=== PATIENT | female | born 1970 | race Caucasian/White ===

== ENCOUNTER → 2016-11-29 | Outpatient (CLI) | payer BC | LOC: MAMO 14:03 | DX: Z12.31 Encounter for screening mammogram for malignant neoplasm of breast (principal) | CPT/HCPCS: G0202 ==

== ENCOUNTER → 2020-09-13 | Outpatient (CLI) | payer BC ==
[~2020-09-13] MED LIST: EUTHYROX75 MCG PO; HYDROCODON-ACE1 EAC4 PO; MOBIC15 MG PO; PAXIL20 MG PO; PEPCID40 MG PO; ZOFRAN ODT 4 MG4 MG GT
[2020-09-13 15:20] LABS: HEMOGLOBIN 14.7 gm/dl (12.3-15.3); RED BLOOD COUNT 4.57 M/UL (4.00-5.10)
[2020-09-13 16:57] LABS: BUN/CREATININE RATIO 14 (0-10)
== END ==
LOC: LAB 14:26
PROVIDERS: Nurse Practitioner Family
DX: Z00.00 Encounter for general adult medical examination without abnormal findings (principal)
CPT/HCPCS: 36415; 80053; 80061; 82607; 83036; 83735; 84443; 85025

== ENCOUNTER → 2020-09-18 | Outpatient (CLI) | payer BC ==
[2020-09-18 15:28] LABS: HEMOGLOBIN 14.2 gm/dl (12.3-15.3); RED BLOOD COUNT 4.37 M/UL (4.00-5.10); WHITE BLOOD COUNT 12.7 K/UL (4.5-11.0)
[2020-09-19 12:14] LABS: RHEUMATOID ARTHRITIS FACTOR <10.0 IU/mL (0.0-13.9)
== END ==
LOC: LAB 14:48
PROVIDERS: Nurse Practitioner Family
DX: M25.552 Pain in left hip (principal); M25.551 Pain in right hip; M53.3 Sacrococcygeal disorders, not elsewhere classified; M54.5 Low back pain; M47.817 Spondylosis without myelopathy or radiculopathy, lumbosacral region; M47.818 Spondylosis without myelopathy or radiculopathy, sacral and sacrococcygeal region
CPT/HCPCS: 72100; 72202; 73522; 84550; 85025; 85652; 86038; 86140; 86431

== ENCOUNTER → 2020-10-11 | Outpatient (CLI) | payer BC | LOC: EROP 12:35 | DX: U07.1 COVID-19 (principal) | CPT/HCPCS: U0002 ==

== ENCOUNTER → 2020-10-29 | Outpatient (CLI) | payer BC | LOC: RAD 18:32 | DX: U07.1 COVID-19 (principal) | CPT/HCPCS: 71046 ==

== ENCOUNTER → 2020-11-13 | Outpatient (CLI) | payer BC ==
[2020-11-14 09:14] LABS: RHEUMATOID ARTHRITIS FACTOR <10.0 IU/mL (0.0-13.9)
[2020-11-15 00:07] LABS: CCP ANTIBODIES IGG/IGA 9 units (0-19)
== END ==
LOC: LAB 13:04
PROVIDERS: Nurse Practitioner Family
DX: M79.642 Pain in left hand (principal); M79.641 Pain in right hand; M79.671 Pain in right foot; M79.672 Pain in left foot; D89.9 Disorder involving the immune mechanism, unspecified; R76.8 Other specified abnormal immunological findings in serum; M25.50 Pain in unspecified joint
CPT/HCPCS: 36415; 73130; 73650; 81001; 82550; 82570; 83520; 84156; 85652; 86140; 86200; 86431

== ENCOUNTER → 2021-02-01 | Outpatient (CLI) | payer BC ==
[2021-02-01 11:10] LABS: HEMOGLOBIN 14.9 gm/dl (12.3-15.3); RED BLOOD COUNT 4.52 M/UL (4.00-5.10); WHITE BLOOD COUNT 7.3 K/UL (4.5-11.0)
[2021-02-01 11:29] LABS: BUN/CREATININE RATIO 27 (0-10)
== END ==
LOC: OPSV2 10:27
PROVIDERS: Orthopaedic Surgery
DX: Z01.818 Encounter for other preprocedural examination (principal); G56.01 Carpal tunnel syndrome, right upper limb
CPT/HCPCS: 36415; 80048; 85025; 93005

== ENCOUNTER → 2021-02-12 | Day surgery (SDC) | payer BC ==
[~2021-02-12] VITALS: Ht 167.6 cm; Wt 71.7 kg
== END | disposition home or self-care (01) ==
LOC: OR 06:01
DX: G56.01 Carpal tunnel syndrome, right upper limb (principal); E03.9 Hypothyroidism, unspecified; J43.9 Emphysema, unspecified; M19.90 Unspecified osteoarthritis, unspecified site; F41.9 Anxiety disorder, unspecified; F17.210 Nicotine dependence, cigarettes, uncomplicated; Z79.899 Other long term (current) drug therapy
CPT/HCPCS: J0690; J1100; J2001; J2250; J2405; J2704; J3010; J7030; J7120

== ENCOUNTER → 2021-06-24 | Outpatient (CLI) | payer BC ==
[2021-06-24 12:29] LABS: HEMOGLOBIN 15.2 gm/dl (12.3-15.3); RED BLOOD COUNT 4.62 M/UL (4.00-5.10); WHITE BLOOD COUNT 8.3 K/UL (4.5-11.0)
[2021-06-24 12:45] LABS: BUN/CREATININE RATIO 22 (0-10)
== END ==
LOC: LAB 11:54
PROVIDERS: Nurse Practitioner Family
DX: Z00.00 Encounter for general adult medical examination without abnormal findings (principal)
CPT/HCPCS: 80053; 80061; 82607; 84443; 85025